=== PATIENT | male | born 2000 ===

== ENCOUNTER 2021-02-26 02:46 | Emergency (ER) | payer SELFPAY ==
[~2021-02-26] VITALS: Ht 185.4 cm; Wt 59.0 kg
[2021-02-26 02:51] VITALS: BP 117/73
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
--- NOTE | 2021-02-26 03:22 | NUR ---
pt to xray, escorted by [employer]
--- NOTE | 2021-02-26 04:16 | NUR ---
Patient/Caregiver given discharge instructions and they have confirmed that they understand the instructions. Patient ambulatory with steady gait. NAD, all questions answered appropriately, denies additional needs at this time. No personal belongings left in room after discharge. PATIENT ESCORTED OUT WITH OUTCOME ANALYST IN CUSTODY
== END 2021-02-26 05:24 | disposition home or self-care (01) ==
LOC: ED 05:00
DX: R07.89 Other chest pain (principal); J45.909 Unspecified asthma, uncomplicated; Z87.891 Personal history of nicotine dependence
CPT/HCPCS: 71046; 99283